=== PATIENT | male | born 1965 | race Caucasian/White ===

== ENCOUNTER 2016-07-11 12:13 | Emergency (ER) | payer BC ==
--- NOTE | ~2016-07-11 | ER ---
PATIENT'S NAME: JAI [facility]ACIA [facility] AGE: 50 Y [address] ROOM: [place] [id number] LOCATION: ED ADMIT DATE: 07/11/2016 ER/Outpatient Report DISCHARGE DATE: 07/11/2016 FAMILY PHYSICIAN: Aaron Kimball MD ATTENDING PHYSICIAN: Franca Daily SEEN AT: 1225 hours. CHIEF COMPLAINT: Right flank and right lower abdominal pain. HISTORY OF PRESENT ILLNESS: The patient is a 50-year-old male, who said about 9 o'clock he had sudden onset of severe pain that started in his right flank, radiating down to his groin. Pain was associated with nausea and vomiting. He denied any fevers, chills, or diarrhea. ALLERGIES: SULFA. CURRENT MEDICATIONS: Zyrtec. MEDICAL HISTORY: Some seasonal allergies, coronary artery disease, and history of a GI bleed. SURGERIES: Right foot and left knee orthopedic surgeries. SOCIAL HISTORY: Nonsmoker. Denies alcohol. REVIEW OF SYSTEMS: GENERAL: No recent illnesses or health issues. Denies fever or chills. HEAD/EENT: Negative. RESPIRATORY: No shortness of breath. No cough. GASTROINTESTINAL: Sudden onset of right flank and right lower abdominal pain. GENITOURINARY: Denies any dysuria, but has some feeling of urgency. The patient is noted no blood in his urine. PHYSICAL EXAMINATION: VITAL SIGNS: He had a blood pressure of 193/102, temperature of 98.8, respiratory rate of 16, pulse of 92, and O2 saturations of 99%. GENERAL APPEARANCE: White male, when he arrived appeared in obvious pain. He PATIENT'S NAME: JAI GRACIA [facility] AGE: 50 Y [address] ROOM: [place] [id number] LOCATION: ED ADMIT DATE: 07/11/2016 ER/Outpatient Report DISCHARGE DATE: 07/11/2016 FAMILY PHYSICIAN: Aaron Kimball MD ATTENDING PHYSICIAN: Franca Daily was oriented x3. Appears well nourished and healthy. HEENT: Head: Normocephalic. Eyes: PERRLA. No icterus. Nose: Septum midline. Mouth: Teeth in good repair. Buccal membranes moist. ABDOMEN: Soft. No guarding. No rebound. SKIN: Warm and dry. LABORATORY DATA AND X-RAYS: Urine was positive for blood, few white cells. CT of his abdomen and pelvis, stone protocol, showed a 3 mm stone, but appeared to be in his bladder. TREATMENT IN THE EMERGENCY ROOM: We did start a saline lock. He was given 30 of Toradol and 2 of morphine, which was repeated x1. The patient was asymptomatic at the time of discharge. We did recommend that he strain his urine. Follow up with his family doctor if he has any concerns. Handout given on renal lithiasis. PIYUSH SAMPSON FOR MD ELIEZER RED/armin /[id number] d: 07/11/16 2331 t: 07/19/161925, OUTPATIENT REPORT
[2016-07-11 12:49] LABS: BASOPHIL % 0.3 %; EOSINOPHIL % 0.2 %; HEMATOCRIT 48.3 % (37.0-53.0); HEMOGLOBIN 16.5 g/dL (12.0-17.0); IMMATURE GRANULOCYTE % 0.2 %; LYMPHOCYTE # 0.9 K/uL (0.8-4.0); LYMPHOCYTE % 7.9 %; MCHC 34.2 gm/dL (32.0-36.5); MCV 81.9 fl (83.0-98.0); MONOCYTE # 0.5 K/uL (0.0-1.0); MONOCYTE % 4.3 %; MPV 9.1 fl (9.4-12.4); NEUTROPHIL # (ANC) 10.4 K/uL (1.4-9.0); NEUTROPHIL % 87.1 %; NRBC % 0 /100WBC (0-0.00); PLATELET COUNT 225 K/uL (150-450); RDW-CV 12.5 % (11.9-14.6)
[2016-07-11 13:06] LABS: ALBUMIN 4.4 gm/dL (3.5-5.0); ALK PHOS 62 IU/L (33-138); ALT 28 IU/L (12-78); ANION GAP 14.4 (10.0-19.0); AST 20 IU/L (10-40); BLOOD UREA NITROGEN 17 mg/dL (6-24); CHLORIDE 105 mMol/L (96-110); CO2 27 mMol/L (22-32); CREATININE 1.1 mg/dL (0.6-1.3); ESTIMATED GFR (MDRD EQUATION) > 60; POTASSIUM 4.4 mMol/L (3.7-5.1); SODIUM 142 mMol/L (135-145); TOTAL BILIRUBIN 0.5 mg/dL (0.0-1.5); TOTAL PROTEIN 7.2 g/dL (6.0-8.4)
[2016-07-11 13:12] LABS: BILIRUBIN URINE NEGATIVE (NEGATIVE); BLOOD URINE 150 /UL (NEGATIVE); GLUCOSE URINE NEGATIVE (NEGATIVE); KETONE URINE NEGATIVE (NEGATIVE); LEUKOCYTES URINE 25 /UL (NEGATIVE); NITRITE URINE NEGATIVE (NEGATIVE); PROTEIN URINE 15 mg/dL (NEGATIVE); SPEC GRAVITY URINE 1.025 (1.003-1.035); UROBILINOGEN URINE NORMAL (NORMAL)
[2016-07-11 13:13] LABS: COLOR URINE YELLOW (YELLOW); TURBIDITY URINE CLEAR (CLEAR)
[2016-07-11 13:23] LABS: RBC URINE 50-100 #/HPF (NEGATIVE); WBC URINE 0-2 #/HPF (NEGATIVE)
[2016-07-11 13:24] LABS: AMORPHOUS URINE 1+ (NEGATIVE); BACTERIA URINE FEW (NEGATIVE); MUCUS URINE 2+ (NEGATIVE)
== END 2016-07-11 15:46 | disposition disaster alternative care site (69) ==
LOC: GMED 12:13
PROVIDERS: Physician Assistant Medical
DX: N21.0 Calculus in bladder (principal); I25.2 Old myocardial infarction; I25.10 Atherosclerotic heart disease of native coronary artery without angina pectoris; Z88.2 Allergy status to sulfonamides; Z79.899 Other long term (current) drug therapy; Z98.890 Other specified postprocedural states
CPT/HCPCS: J1885; J2270; J2405